=== PATIENT | male | born 1965 | race Caucasian/White ===

== ENCOUNTER 2016-12-12 16:10 | Inpatient (IN) | payer OTHER ==
[~2016-12-12] VITALS: Ht 185.4 cm; Wt 160.0 kg
[2016-12-12 16:11] VITALS: BP 153/82; PULSE 83; RESP 15; TEMP 97.9; O2SAT 95
[2016-12-12] MEDS ORDERED: SODIUM CHLOR 0.9% 1000 ML INJ 1,000 ML IV SCH (18:01)
--- NOTE | 2016-12-12 18:03 | PD ---
HPI Chief Complaint: Flank/Kidney Pain Time Seen by Provider: 17:56 Travel History International Travel<30 days: No Contact w/Intl Traveler<30days: No Traveled to known affect area: No History of Present Illness HPI This is a 51-year-old male who presents to the emergency department with 2 days of left flank pain, waking him up in the middle of the night 2 nights ago, constant, severe, worsening, associated with nausea and multiple episodes of vomiting. He denies any fevers or chills, denies any diarrhea, hematuria, urinary urgency or frequency. He's never had surgery on his abdomen. He denies alcohol use. He's never had pain like this before. PFSH Past Medical History Narrative Medical htn Social History Alcohol Use: Yes (socially) Tobacco Use: No Allergies-Medications (Allergen,Severity, Reaction): Coded Allergies: Sulfa (Verified Allergy, Severe, Rash, 12/12/16) Review of Systems Except as stated in HPI: all other systems reviewed are Neg Physical Exam Narrative GENERAL: Uncomfortable appearing, morbidly obese SKIN: Warm and dry. HEAD: Atraumatic. Normocephalic. EYES: Pupils equal and round. No injection or drainage. ENT: Moist mucous membranes NECK: Trachea midline. CARDIOVASCULAR: Regular rate and rhythm. No murmur appreciated. RESPIRATORY: Clear to auscultation. Breath sounds equal bilaterally. GASTROINTESTINAL: Abdomen soft, tender to palpation in the epigastrium with no rebound or guarding. : Left CVA tenderness. MUSCULOSKELETAL: No obvious deformities. NEUROLOGICAL: Awake and alert. No obvious cranial nerve deficits. Moving all extremities. PSYCHIATRIC: Appropriate mood and affect; insight and judgment normal. Data Data Last Documented VS Vital Signs Date Time Temp Pulse Resp B/P Pulse Ox O2 Delivery O2 Flow Rate FiO2 12/12/16 18:39 90 18 108/52 96 Nasal Cannula 2 12/12/16 16:11 97.9 Orders Complete Blood Count With Diff (12/12/16 18:01) Comprehensive Metabolic Panel (12/12/16 18:01) Lipase (12/12/16 18:01) Urinalysis - C+S If Indicated (12/12/16 18:01) Ct Abd/Pel W/O Iv Contrast (12/12/16 18:01) Iv Access Insert/Monitor (12/12/16 18:01) Ecg Monitoring (12/12/16 18:01) Oximetry (12/12/16 18:01) Ondansetron Inj (Zofran Inj) (12/12/16 18:15) Sodium Chlor 0.9% 1000 Ml Inj (Ns 1000 M (12/12/16 18:01) Sodium Chloride 0.9% Flush (Ns Flush) (12/12/16 18:15) Electrocardiogram (12/12/16 18:01) Hydromorphone Pf Inj (Dilaudid Pf Inj) (12/12/16 18:15) Troponin I (12/12/16 18:01) Hydromorphone Pf Inj (Dilaudid Pf Inj) (12/12/16 20:15) Ketorolac Inj (Toradol Inj) (12/12/16 20:15) Admit Order (Ed Use Only) (12/12/16 20:16) Ondansetron Inj (Zofran Inj) (12/12/16 20:30) Labs Laboratory Tests Test 12/12/16 18:26 White Blood Count 14.2 TH/MM3 Red Blood Count 4.60 MIL/MM3 Hemoglobin 13.7 GM/DL Hematocrit 40.9 % Mean Corpuscular Volume 88.9 FL Mean Corpuscular Hemoglobin 29.8 PG Mean Corpuscular Hemoglobin 33.5 % Concent Red Cell Distribution Width 13.7 % Platelet Count 171 TH/MM3 Mean Platelet Volume 8.2 FL Neutrophils (%) (Auto) 89.4 % Lymphocytes (%) (Auto) 5.7 % Monocytes (%) (Auto) 4.6 % Eosinophils (%) (Auto) 0.0 % Basophils (%) (Auto) 0.3 % Neutrophils # (Auto) 12.7 TH/MM3 Lymphocytes # (Auto) 0.8 TH/MM3 Monocytes # (Auto) 0.6 TH/MM3 Eosinophils # (Auto) 0.0 TH/MM3 Basophils # (Auto) 0.0 TH/MM3 CBC Comment DIFF FINAL Differential Comment Sodium Level 139 MEQ/L Potassium Level 4.3 MEQ/L Chloride Level 102 MEQ/L Carbon Dioxide Level 27.7 MEQ/L Anion Gap 9 MEQ/L Blood Urea Nitrogen 14 MG/DL Creatinine 1.47 MG/DL Estimat Glomerular Filtration 51 ML/MIN Rate Random Glucose 227 MG/DL Calcium Level 9.0 MG/DL Total Bilirubin 0.7 MG/DL Aspartate Amino Transf 20 U/L (AST/SGOT) Alanine Aminotransferase 38 U/L (ALT/SGPT) Alkaline Phosphatase 69 U/L Troponin I LESS THAN 0.02 NG/ML Total Protein 7.9 GM/DL Albumin 3.6 GM/DL Lipase 69 U/L MDM Medical Decision Making Medical Screen Exam Complete: Yes Emergency Medical Condition: Yes Interpretation(s) Afebrile, no tachycardia, hypertensive Leukocytosis with 89% neutrophils GFR is 51 Troponin is 0.02 Last 24 hours Impressions Abdomen/Pelvis CT 12/12/16 1801 Signed Impressions: Service Date/Time: December 18:50 - CONCLUSION: 1. 7 x 7 by 8mm stone of the left ureteropelvic junction causing moderate obstructive uropathy including perinephric edema. I can't clearly see the stone on the initial pressurizer radiograph. 2. Fatty liver. 3. Diverticulosis of the sigmoid colon without diverticulitis. Ted Crain MD Differential Diagnosis Nephrolithiasis, pyelonephritis, pancreatitis, gastritis Narrative Course This is a 51-year-old male who presents to the emergency department with left- sided flank pain that's been going on for 2 days. He was placed on a monitor and an IV was established. He was given multiple doses of analgesia and reassessed. Labs are obtained which demonstrated a leukocytosis. CT demonstrates an obstructing 7 x 8 mm stone at the UPJ. Given the size of the stone and its proximal location a think it's reasonable to admit the patient for pain control and urology consultation. He is nontoxic appearing and I don' t suspect an infected stone at this time. Physician Communication Physician Communication Discussed with Dr. Mcmahan Diagnosis Primary Impression: Acute unilateral obstructive uropathy Admitting Information Admitting Physician Requests: Admit Farhana Andino MD Dec 12, 2016 18:03
[2016-12-12] MEDS ORDERED: ONDANSETRON HCL 4 MG/2 ML VIAL IVP ONE (18:15)
[2016-12-12] MEDS ORDERED: HYDROmorphone HCL PF 1 MG/ML VIAL IVS ONE (18:15)
[2016-12-12] MEDS ORDERED: SODIUM CHLORIDE 0.9% FLUSH 5 ML FLUSH IVF PRN (18:15)
[2016-12-12 18:39] VITALS: BP 108/52; PULSE 90; RESP 18; O2SAT 96
[2016-12-12 18:51] LABS: AUTOMATED NEUTROPHIL # 12.7 TH/MM3 (1.8-7.7); BASOPHIL % 0.3 % (0.0-2.0); HEMATOCRIT 40.9 % (39.0-51.0); HEMO FLAGS DIFF FINAL; LYMPH % 5.7 % (9.0-44.0); LYMPHOCYTE # 0.8 TH/MM3 (1.0-4.8); MEAN CELL VOLUME 88.9 FL (80.0-100.0); MEAN CORPUSCULAR HEMOGLOBIN 29.8 PG (27.0-34.0); MEAN CORPUSCULAR HGB CONC 33.5 % (32.0-36.0); MONO % 4.6 % (0.0-8.0); NEUT % 89.4 % (16.0-70.0); PLATELET COUNT 171 TH/MM3 (150-450); RED CELL DISTRIBUTION WIDTH 13.7 % (11.6-17.2); WHITE BLOOD COUNT 14.2 TH/MM3 (4.0-11.0)
[2016-12-12 19:18] LABS: ANION GAP 9 MEQ/L (5-15); AST (GOT) 20 U/L (15-37); BICARBONATE 27.7 MEQ/L (21.0-32.0); BLOOD UREA NITROGEN 14 MG/DL (7-18); CHLORIDE 102 MEQ/L (98-107); GLOMERULAR FILTRATION RATE 51 ML/MIN (>89); POTASSIUM 4.3 MEQ/L (3.5-5.1); SODIUM (NA) 139 MEQ/L (136-145)
[2016-12-12 19:23] LABS: ALKALINE PHOSPHATASE 69 U/L (45-117); ALT (GPT) 38 U/L (12-78); TOTAL BILIRUBIN ADULT 0.7 MG/DL (0.2-1.0)
--- NOTE | 2016-12-12 19:30 | RADRPT ---
EXAM DATE/TIME: 12/12/2016 18:50 [facility] COMPARISON: No previous studies available for comparison. INDICATIONS : Left flank pain with nausea and vomiting for two days. ORAL CONTRAST: No oral contrast ingested. RADIATION DOSE: 21.99 CTDIvol (mGy) MEDICAL HISTORY : None SURGICAL HISTORY : None. ENCOUNTER: Initial ACUITY: 1 day PAIN SCALE: 8/10 LOCATION: Left flank TECHNIQUE: Volumetric scanning of the abdomen and pelvis was performed. Using automated exposure control and ad justment of the mA and/or kV according to patient size, radiation dose was kept as low as reasonably achievable to obtain optimal diagnostic quality images. FINDINGS: LOWER LUNGS: The visualized lower lungs are clear. LIVER: Fatty infiltrated liver. SPLEEN: Normal size without lesion. PANCREAS: Within normal limits. KIDNEYS: 10 x 7 by 8mm stone seen at the left ureteropelvic junction. There is moderate hydronephrosis. Perine phric edema seen. No renal or ureteral calculus on the right. ADRENAL GLANDS: Within normal limits. VASCULAR: There is no aortic aneurysm. BOWEL/MESENTERY: Moderate diverticulosis of the sigmoid colon. No acute inflammatory changes are demonstrated. ABDOMINAL WALL: Within normal limits. RETROPERITONEUM: There is no lymphadenopathy. BLADDER: No wall thickening or mass. REPRODUCTIVE: Within normal limits. INGUINAL: There is no lymphadenopathy or hernia. MUSCULOSKELETAL: No acute bony abnormality demonstrated. CONCLUSION: 1. 7 x 7 by 8mm stone of the left ureteropelvic junction causing moderate obstructive uropathy includ ing perinephric edema. I can't clearly see the stone on the initial crew boss radiograph. 2. Fatty liver. 3. Diverticulosis of the sigmoid colon without diverticulitis. Ted Crain MD on December 12, 2016 at 19:26 Board Certified Radiologist. This report was verified electronically.
[2016-12-12] MEDS ORDERED: HYDROmorphone HCL PF 1 MG/ML VIAL IV PUSH ONE (20:15)
[2016-12-12] MEDS ORDERED: KETOROLAC TROMETHAMINE 30 MG/ML (IVP) VIAL IV PUSH ONE (20:15)
[2016-12-12] MEDS ORDERED: ONDANSETRON HCL 4 MG/2 ML VIAL IV ONE (20:30)
[2016-12-12 20:45] VITALS: BP 141/84; PULSE 105; RESP 15; O2SAT 97
[2016-12-12 21:00] LABS: BLOOD, URINE TRACE (NEG); COMMENT (UR) CULT NOT INDICATED; CULTURE IF INDICATED CULT NOT INDICATED; GLUCOSE,URINE 1000 mg/dL (NEG); KETONE, URINE 10 mg/dL (NEG); MUCUS URINE FEW /lpf (OCC); NITRITE,URINE NEG (NEG); SQUAMOUS EPITHELIAL CELL URINE <1 /hpf (0-5); URINE COLOR YELLOW (YELLW/STRAW)
--- NOTE | 2016-12-12 22:09 | HHI.HP ---
HPI Service Family Medicine Primary Care Physician Non-Staff Admission Diagnosis obstructive uropathy, kidney stone Diagnoses: International Travel<30 Days: No Contact w/Intl Traveler<30days: No Known Affected Area: No History of Present Illness 51 year-old male with DM2, HTN, HLD, and gout presents to ED with L-flank pain x3 days. Three days ago, had sudden onset colicky L-sided flank pain that interfered with his sleep. The pain went away completely the next day so he dismissed it as a pulled muscle. However, severe pain returned this morning as sharp, constant, 8/10 L flank pain, radiating to L hip. not improved or worsened by positioning, coughing, or urinating. Pain was accompanied by non- bloody, bilious vomiting x10. Pain and nausea were relieved completely by medications in the ED. Currently 0/10 pain and able to tolerate sips of water. He has never had anything like this happen before and is travelling here from [place] on vacation. (Tracy Brennan MD R1) Review of Systems Constitutional: DENIES: Fever, Chills Endocrine: COMPLAINS OF: Polydipsia, Polyuria Eyes: DENIES: Blurred vision, Double Vision Ears, nose, mouth, throat: DENIES: Throat pain, Running Nose Respiratory: DENIES: Cough, Shortness of breath Cardiovascular: DENIES: Chest pain, Palpitations, Syncope Gastrointestinal: COMPLAINS OF: Nausea, Vomiting, DENIES: Abdominal pain, Constipation, Diarrhea Genitourinary: COMPLAINS OF: Nocturia (x1, chronic), DENIES: Hematuria, Dysuria Musculoskeletal: COMPLAINS OF: Back pain Integumentary: DENIES: Pruritus Neurologic: DENIES: Headache Psychiatric: COMPLAINS OF: Depression, DENIES: Anxiety (Tracy Brennan MD R1) Past Family Social History Past Medical History DM2 HTN HLD Gout "Arrhythmia- skipped beats every one in a while" Denies "afib" or anticogulation Depression Vitamin D deficiency . Past Surgical History Denies . Reported Medications *Does not have med list or know exact dosing Lantus 40mg BID Metformin 500 BID Diavan HCl Norvasc Statin Allopurinol once day Aspirin 81mg daily Lexapro Vitamin D 5000 units . (Tracy Brennan MD R1) Allergies: Coded Allergies: Sulfa (Verified Allergy, Severe, Rash, 12/12/16) Family History Mother- alive, chronic fatigue Father- alive, healthy 3 kids- healthy Social History Lives with and two of his three children. Lives in [place], visiting for spring. 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 Social alcohol use a few times/month. Full code (Tracy Brennan MD R1) Physical Exam Vital Signs Vital Signs Date Time Temp Pulse Resp B/P Pulse Ox O2 Delivery O2 Flow Rate FiO2 12/12/16 18:39 90 18 108/52 96 Nasal Cannula 2 12/12/16 18:39 89 12/12/16 16:11 97.9 83 15 153/82 95 Physical Exam GEN: Obese male in no acute distress. SKIN: Warm and dry, no rashes. Discolored scab LLQ abdomen ("from belt buckle" ) HEENT: PERRL. EOMI. No injection or scleral icterus. Pupils miotic. Oropharynx with mild diffuse erythema and grade 2 tonsillar hypertrophy. No exudate. NECK: Thick neck. Mild submandibular lymphadenopathy. No posterior or anterior chain LAD. No JVD. CV: Distant heart sounds. RRR. No murmurs or gallops. RESP: Lungs CTAB. No wheezes, rales, rhonchi. GI: Abd soft, NTND. No HSM. No guarding. : No CVA tenderness. No tenderness to palpation of vertebrae or para- vertebral musculature. MSK: No peripheral edema or calf tenderness NEURO: AAOx3. Motor and sensory function grossly within normal limits. PSYCH: Good insight. Appropriate affect. Laboratory Laboratory Tests Test 12/12/16 12/12/16 18:26 20:45 White Blood Count 14.2 Red Blood Count 4.60 Hemoglobin 13.7 Hematocrit 40.9 Mean Corpuscular Volume 88.9 Mean Corpuscular Hemoglobin 29.8 Mean Corpuscular Hemoglobin 33.5 Concent Red Cell Distribution Width 13.7 Platelet Count 171 Mean Platelet Volume 8.2 Neutrophils (%) (Auto) 89.4 Lymphocytes (%) (Auto) 5.7 Monocytes (%) (Auto) 4.6 Eosinophils (%) (Auto) 0.0 Basophils (%) (Auto) 0.3 Neutrophils # (Auto) 12.7 Lymphocytes # (Auto) 0.8 Monocytes # (Auto) 0.6 Eosinophils # (Auto) 0.0 Basophils # (Auto) 0.0 CBC Comment DIFF FINAL Differential Comment Sodium Level 139 Potassium Level 4.3 Chloride Level 102 Carbon Dioxide Level 27.7 Anion Gap 9 Blood Urea Nitrogen 14 Creatinine 1.47 Estimat Glomerular Filtration 51 Rate Random Glucose 227 Calcium Level 9.0 Total Bilirubin 0.7 Aspartate Amino Transf 20 (AST/SGOT) Alanine Aminotransferase 38 (ALT/SGPT) Alkaline Phosphatase 69 Troponin I LESS THAN 0.02 Total Protein 7.9 Albumin 3.6 Lipase 69 Urine Color YELLOW Urine Turbidity CLEAR Urine pH 5.0 Urine Specific [place] 1.018 Urine Protein NEG Urine Glucose (UA) 1000 Urine Ketones 10 Urine Occult Blood TRACE Urine Nitrite NEG Urine Bilirubin NEG Urine Urobilinogen LESS THAN 2.0 Urine Leukocyte Esterase NEG Urine RBC 1 Urine WBC LESS THAN 1 Urine Squamous Epithelial <1 Cells Urine Mucus FEW Microscopic Urinalysis Comment CULT NOT INDICATED (Tracy Brennan MD R1) Result Diagram: 12/12/16182512/12/161825 Imaging Last Impressions Abdomen/Pelvis CT 12/12/16 180 Signed Impressions: Service Date/Time: December 18:50 - CONCLUSION: 1. 7 x 7 by 8mm stone of the left ureteropelvic junction causing moderate obstructive uropathy including perinephric edema. I can't clearly see the stone on the initial chargeback specialist radiograph. 2. Fatty liver. 3. Diverticulosis of the sigmoid colon without diverticulitis. Ted Crain MD (Tracy Brennan MD R1) Assessment and Plan Assessment and Plan 51 year-old male with DM2, HTN, HLD, and gout admitted 12/12/16 for nephrolithiasis and SYLVIE. Code Status Full Discussed Condition With SDW: Dr. Ion Mcmahan (Tracy Brennan MD R1) Attending Attestation The patient has been seen and examined. The chart and all resident notes have been reviewed. I agree that inpatient care is appropriate and that a two midnight stay is expected for the reasons documented in the resident history and physical. I have discussed this with the resident and certify the resident s order for inpatient admission. (Airam Cain MD) Problem List: (1) Nephrolithiasis Status: Acute Plan: Nephrolithiasis was strongly suspected on admission secondary to classic presentation with severe flank pain and vomiting, however, pyelonephritis, AAA, mesenteric ischemia, and appendicitis were also considered. Labs returned remarkable for leukocytosis to 14.6k and elevated BUN/Cr of 14/1.47. CT abdomen/ pelvis confirmed diagnosis with partially obstructing 7 x 7 x 8mm stone at left UPJ. CT a/p was also significant for incidental fatty liver disease and diverticulosis. EKG was significant for PVCs and LAD. As stone >5mm in size, less likely to pass spontaneously. Pt to be admitted inpatient for IV fluids, pain control, and evaluation by nephrology for surgical candidacy. Antibiotics considered, not deemed necessary because of clean U/A and non-toxic appearance. Of note, pt at increased risk for uric acid stone due to gout, diabetes, and morbid obesity. Nephrolithiasis -Admit to inpatient under Dr. Cain -Consult Urology, appreciate recommendations for treatment of stone -Consult Case management for help with discharge arrangements (pt lives in [place]) -Strain urine for stones, notify physician if produced -Maintenance IVF at NS @200mL/hr -Start Flomax 0.4mg PO HS -Acetaminophen 1g IV q6h GINA -Morphine 4mg IV q2h PRN pain 5-10 -Dilaudid 0.5mg q3h PRN breakthrough pain -Miralax 17mg daily [facility] for bowel regimen support -Vitals q4h, oxygen support as needed for saturations 89%+, OOB ad randy -In AM, obtain CBC, BMP, Uric acid, PT/INR, PTT SYLVIE: Likely secondary to stone. Baseline Cr unknown. Fluids as below. Trend BUN /Cr. Diverticulosis: Incidental finding, encourage higher dietary fiber intake Fatty Liver Disease: Incidental finding on CT a/p: recommend dietary and exercise modification to achieve healthy weight. Chronic Medical Conditions DM2- hold home metformin 500 BID and lantus 40mg HS. Start Accu-check achs + low sliding scale insulin. Will continue home Lantus at lower dose 10mg HS HTN- continue amlodipine 10mg, valsartan 80mg PO, aspirin 81mg daily. PRN hydralazine for SBP 180+ HLD- continue home statin as pravastatin 40mg HS Depression- continue home Lexapro 20mg HS Gout- continue home allopurinol 100mg HS Morbid obesity 45-49- encourage dietary and exercise modification Fluids, Electrolytes, Nutrition, Prophylactic Fluids: MIVF @ NS 200mL/hr Electrolytes: monitor and replete, as needed Nutrition: NPO except meds after midnight in case of surgery, when allowed diet Diabetic diet DVT prophylaxis: SCDs GI prophylaxis: not indicated (2) SYLVIE (acute kidney injury) Status: Acute (3) Gout Status: Chronic (4) HTN (hypertension) Status: Chronic (5) HLD (hyperlipidemia) Status: Chronic (6) MDD (major depressive disorder) Status: Chronic (7) DM2 (diabetes mellitus, type 2) Status: Chronic (8) Fatty liver disease, nonalcoholic Status: Chronic (9) BMI 45.0-49.9, adult Status: Chronic (10) Diverticulosis Status: Chronic (Tracy Brennan MD R1) Physician Certification 2 Midnight Certification Type: Admission for Inpatient Services Order for Inpatient Services The services are ordered in accordance with Medicare regulations or non- Medicare payer requirements, as applicable. In the case of services not specified as inpatient-only, they are appropriately provided as inpatient services in accordance with the 2-midnight benchmark. Estimated LOS (days): 2 days is the estimated time the patient will need to remain in the hospital, assuming treatment plan goals are met and no additional complications. Post-Hospital Plan: Home (Tracy Brennan MD R1) Tracy Brennan MD R1 Dec 12, 2016 22:09 Airam Cain MD Dec 13, 2016 11:33
[2016-12-12] MEDS ORDERED: ACETAMINOPHEN 325 MG TAB PO PRN (23:00)
[2016-12-12] MEDS: SODIUM CHLORIDE 0.9% FLUSH 5 ML FLUSH FLUSH SCH (23:00)
[2016-12-12] MEDS ORDERED: SODIUM CHLORIDE 0.9% FLUSH 5 ML FLUSH FLUSH PRN (23:00)
[2016-12-12] MEDS ORDERED: MORPHINE SULFATE 4 MG/ML INJ IV PRN ×2 (23:00→23:30)
[2016-12-12] MEDS ORDERED: NALOXONE HCL 0.4 MG/ML AMP IV PRN ×2 (23:00→23:30)
[2016-12-12] MEDS ORDERED: METOCLOPRAMIDE HCL 10 MG/2 ML VIAL IV PUSH PRN (23:00)
[2016-12-12] MEDS ORDERED: GLUCAGON 1 MG/ML VIAL OTHER PRN (23:15)
[2016-12-12] MEDS: SODIUM CHLOR 0.9% 1000 ML INJ 1,000 ML IV SCH (23:15)
[2016-12-12] MEDS ORDERED: DEXTROSE 50% IN WATER 50 ML VIAL(D50) IV PUSH PRN (23:15)
[2016-12-12] MEDS ORDERED: hydrALAZINE HCL 20 MG/ML VIAL IV PRN (23:30)
[2016-12-12] MEDS: ACETAMINOPHEN 1000 MG/100 ML VIAL IV SCH (23:30)
[2016-12-12] MEDS ORDERED: diphenhydrAMINE HCL 25 MG CAP PO PRN (23:30)
[2016-12-12] MEDS ORDERED: MELATONIN 5 MG TAB PO PRN (23:30)
[2016-12-12] MEDS ORDERED: HYDROmorphone HCL PF 1 MG/ML VIAL IV PRN ×2 (23:30)
[2016-12-12 23:40] VITALS: O2SAT 94
[2016-12-13] VITALS (8 sets, daily range): BP systolic 123–149; BP diastolic 57–86; PULSE 70–88; RESP 16–20; TEMP 95.6–98.4; O2SAT 95–97
[2016-12-13] MEDS: INSULIN DETEMIR 100 UNITS/ML VIAL SQ SCH ×2 (01:45→21:21)
[2016-12-13] MEDS ORDERED: KETOROLAC TROMETHAMINE 30 MG/ML (IVP) VIAL IVP PRN (02:00)
[2016-12-13] MEDS: ESCITALOPRAM OXALATE 20 MG TAB PO SCH ×2 (03:17→21:22)
[2016-12-13] MEDS: TAMSULOSIN HCL 0.4 MG CAP PO SCH ×2 (03:17→21:22)
[2016-12-13] MEDS: SODIUM CHLOR 0.9% 1000 ML INJ 1,000 ML IV SCH ×5 (04:50→23:47)
[2016-12-13] MEDS: ACETAMINOPHEN 1000 MG/100 ML VIAL IV SCH ×3 (05:30→18:08)
[2016-12-13 06:17] LABS: AUTOMATED NEUTROPHIL # 8.3 TH/MM3 (1.8-7.7); BASOPHIL # 0.1 TH/MM3 (0-0.2); BASOPHIL % 0.8 % (0.0-2.0); EOSINOPHIL # 0.1 TH/MM3 (0-0.4); EOSINOPHIL % 0.7 % (0.0-4.0); HEMATOCRIT 36.4 % (39.0-51.0); HEMO FLAGS DIFF FINAL; MEAN CELL VOLUME 87.2 FL (80.0-100.0); MEAN CORPUSCULAR HEMOGLOBIN 30.2 PG (27.0-34.0); MEAN CORPUSCULAR HGB CONC 34.6 % (32.0-36.0); MONO % 11.1 % (0.0-8.0); NEUT % 70.4 % (16.0-70.0); PLATELET COUNT 152 TH/MM3 (150-450); RED BLOOD COUNT 4.17 MIL/MM3 (4.50-5.90); RED CELL DISTRIBUTION WIDTH 13.5 % (11.6-17.2); WHITE BLOOD COUNT 11.8 TH/MM3 (4.0-11.0)
[2016-12-13 06:32] LABS: APTT (PATIENT) 26.4 SEC (24.3-30.1); PROTHROMBIN TIME - PATIENT 11.2 SEC (9.8-11.6)
[2016-12-13] MEDS: INSULIN ASPART SUPPLEMENTAL SCALE SQ SCH ×4 (07:00→21:00)
--- NOTE | 2016-12-13 08:26 | HHI.FPPN ---
Subjective Subjective Patient seen and examined this am with the resident team. Case reviewed and discussed Please refer to resident H&P for further details regarding HPI, ROS, PMH, SurgHx FH and SocHx In summary, patient is a 51yoM with a history of insulin-dependent DM, HTN, obesity presenting with 3 days of L flank pain. No fevers, chills. He reports that the pain radiates to his L groin. No dysuria, hematuria. The pain became progressively worse over the course of the last several days since onset He was prompted to come in after 10 episodes of vomiting [facility] Objective Objective Last Impressions Abdomen/Pelvis CT 12/12/16 1801 Signed Impressions: Service Date/Time: December 18:50 - CONCLUSION: 1. 7 x 7 by 8mm stone of the left ureteropelvic junction causing moderate obstructive uropathy including perinephric edema. I can't clearly see the stone on the initial medical screener radiograph. 2. Fatty liver. 3. Diverticulosis of the sigmoid colon without diverticulitis. Ted Crain MD Laboratory Tests - Abnormals Test 12/12/16 12/12/16 12/13/16 18:26 20:45 06:00 White Blood Count 14.2 TH/MM3 11.8 TH/MM3 Neutrophils (%) (Auto) 89.4 % 70.4 % Lymphocytes (%) (Auto) 5.7 % Neutrophils # (Auto) 12.7 TH/MM3 8.3 TH/MM3 Lymphocytes # (Auto) 0.8 TH/MM3 Creatinine 1.47 MG/DL Estimat Glomerular Filtration 51 ML/MIN Rate Random Glucose 227 MG/DL Troponin I LESS THAN 0.02 NG/ML Lipase 69 U/L Urine Glucose (UA) 1000 mg/dL Urine Ketones 10 mg/dL Urine Occult Blood TRACE Urine Mucus FEW /lpf Red Blood Count 4.17 MIL/MM3 Hemoglobin 12.6 GM/DL Hematocrit 36.4 % Monocytes (%) (Auto) 11.1 % Monocytes # (Auto) 1.3 TH/MM3 Vital Signs 12/12/16 12/12/16 12/12/16 12/12/16 16:11 18:39 18:39 20:45 Temp 97.9 Pulse 83 89 90 105 Resp 15 18 15 B/P 153/82 108/52 141/84 Pulse Ox 95 96 97 O2 Delivery Nasal Cannula O2 Flow Rate 2 12/12/16 12/13/16 12/13/16 12/13/16 23:40 00:00 00:45 05:55 Pulse 88 70 Resp 16 18 18 B/P 136/69 123/57 Pulse Ox 94 97 96 O2 Delivery Nasal Cannula O2 Flow Rate 2.00 12/13/16 07:30 Temp 98.4 Pulse 77 Resp 16 B/P 149/77 Pulse Ox 95 O2 Delivery Room Air Physical exam GENERAL: wdwn male, obese, sitting up in chair in ED SKIN: Warm and dry. No rashes HEAD: Normocephalic. AT EYES: No scleral icterus. No injection or drainage. ENT: OP clear. MMM NECK: Supple, trachea midline. CARDIOVASCULAR: Distant heart sounds. Regular rate and rhythm without audible murmurs, gallops, or rubs. RESPIRATORY: Breath sounds equal and clear bilaterally. No accessory muscle use. GASTROINTESTINAL: Abdomen soft, non-tender, nondistended. Normal active BS, no rebound, guarding. MUSCULOSKELETAL: No cyanosis, or edema. No calf tenderness BACK: Nontender without obvious deformity. No CVA tenderness. NEURO: Awake and alert. Normal speech, CN grossly intact. Assessment Assessment 51yoM admitted with: Nephrolithiasis with obstructive uropathy Leukocytosis Acute renal injury DM, insulin dependent HTN Gout HL Obesity Depression PLAN PLAN IVF Pain control Urology consultation - appreciate recs Strain urine Monitor intake/output Monitor cbc, bmp SSI with accu-checks Resume home meds as appropriate Patient seen and examined with the resident team Case reviewed and discussed Agree with plan of care as discussed with me and documented in the resident note. Airam Cain MD Dec 13, 2016 08:26
[2016-12-13] MEDS ORDERED: VALSARTAN 80 MG TAB PO ONE (09:00)
[2016-12-13] MEDS: ALLOPURINOL 100 MG TAB PO SCH (09:00)
[2016-12-13] MEDS: MAGNESIUM HYDROXIDE SUSP 30 ML CUP PO SCH (09:00)
[2016-12-13] MEDS: SODIUM CHLORIDE 0.9% FLUSH 5 ML FLUSH FLUSH SCH ×2 (09:03→20:10)
[2016-12-13] MEDS: ASPIRIN EC 81 MG TABEC PO SCH (09:34)
[2016-12-13 11:20] LABS: ALT (GPT) 30 U/L (12-78); ANION GAP 8 MEQ/L (5-15); AST (GOT) 14 U/L (15-37); BICARBONATE 29.5 MEQ/L (21.0-32.0); BLOOD UREA NITROGEN 16 MG/DL (7-18); CHLORIDE 105 MEQ/L (98-107); GLOMERULAR FILTRATION RATE 64 ML/MIN (>89); SODIUM (NA) 142 MEQ/L (136-145)
[2016-12-13 11:22] LABS: ALKALINE PHOSPHATASE 53 U/L (45-117); TOTAL BILIRUBIN ADULT 0.8 MG/DL (0.2-1.0)
[2016-12-13] MEDS: ONDANSETRON HCL 4 MG/2 ML VIAL IVP PRN (11:53)
--- NOTE | 2016-12-13 14:10 | RADRPT ---
EXAM DATE/TIME: 12/13/2016 13:49 [facility] COMPARISON: CT ABDOMEN & PELVIS W/O CONTRAST, December 12, 2016, 18:50. INDICATIONS : Calculi MEDICAL HISTORY : None. SURGICAL HISTORY : None. ENCOUNTER: Initial ACUITY: 1 day PAIN SCORE: 7/10 LOCATION: Bilateral ABdomen FINDINGS: 8 mm stone can be seen in the left ureter at the level of L3, unchanged from yesterday CT. No other s tones are demonstrated. Nonobstructive bowel gas pattern. No free air. CONCLUSION: Unchanged position of left ureteral calculus near the level of L3. Ted Crain MD on December 13, 2016 at 14:08 Board Certified Radiologist. This report was verified electronically.
[2016-12-13] MEDS: KETOROLAC TROMETHAMINE 30 MG/ML (IVP) VIAL IV PUSH PRN (16:07)
--- NOTE | 2016-12-13 16:52 | MB ---
cc: JOSE R SAUL MD DATE OF CONSULTATION 12/13/16 REASON FOR CONSULTATION 1. Left proximal 8 mm ureteral stone with mild hydronephrosis 2. Left flank pain. HISTORY OF PRESENT ILLNESS This is a 51-year-old male with history of diabetes and gout who presented to [facility] emergency room last night with complaints of severe sharp stabbing left flank pain radiating to his left groin for the last three days. Initially, when it presented three days ago it came sudden onset and interfered with his sleep. However, the pain resolved completely the next day and he attributed it to a to pulled muscle. However, the pain abruptly returned and became more sharp, constant, 8/10 in his left flank radiating to his left groin starting yesterday morning. It did not improve with positioning, coughing or urinating. He then developed nausea and vomiting and vomited more than five times. He presented to the emergency department where a CT abdomen and pelvis without contrast was done which showed an 8 mm proximal left ureteral stone with mild hydronephrosis. He was then admitted for further evaluation. Urology was consulted. Currently, his pain is improved with morphine but it is slowly coming back on the left side. He also continues to be somewhat nauseated. He denies dysuria, hematuria or prior episodes in the past. Denies a history of kidney stones or family history of kidney stones. Denies any problems with urination, has a good stream, only gets up one time at night. PAST MEDICAL HISTORY 1. Diabetes, 2. Hypertension, 3. Gout, 4. Hyperlipidemia, 5. Questionable arrhythmia 6. Depression 7. Vitamin D deficiency PAST HISTORY Status post circumcision. MEDICATIONS 1. Lantus 40 mg b.i.d. 2. Metformin 500 mg b.i.d. 3. Diovan 4. Norvasc. 5. Allopurinol. 6. Aspirin. ALLERGIES SULFA SOCIAL HISTORY He lives with his and has three kids. He is currently visiting from [place]. He is flying back on Friday. He denies tobacco or illicit drug use. Does socially drink alcohol. REVIEW OF SYSTEMS See HPI otherwise 12-point review of systems was performed otherwise negative. PHYSICAL EXAMINATION VITAL SIGNS: Temperature is 94, pulse 80, respiratory rate 18, BP 145/86, satting 96% room air. GENERAL: Alert and oriented times three. No apparent distress. Pleasant, cooperative gentleman appears his stated age. HEENT: Head is normocephalic, atraumatic. Eyes - No scleral icterus. Extraocular muscles intact. NECK: Supple. Trachea is midline. No JVD. LUNGS: Clear to auscultation bilaterally. No wheezes, rales or rhonchi. HEART: Regular rate and rhythm, no gallops, rubs or murmurs. ABDOMEN: Soft, obese, nontender, nondistended. Positive bowel sounds. GENITOURINARY: No CVA tenderness bilaterally. His penis is circumcised. Testes are descended bilaterally. Normal size and consistency. RECTAL: EXTREMITIES: Nontender, no cyanosis, clubbing or edema. SKIN: No ulcers or rashes. PSYCHIATRIC: Normal affect. LABORATORY DATA White count 11.8, hemoglobin 12.6, hematocrit 36.1, platelet count 152. Sodium 142, potassium 4.0. Chloride 105, bicarb 28.5, creatinine 1.21, BUN 16, calcium 8.3. Urine had significant amount of glucose with negative nitrates and negative leukocyte esterase. IMAGING STUDIES CT abdomen and pelvis without contrast. Images reviewed. Agree with radiologist's report. He has an obstructing 8 mm left proximal ureteral stone with mild hydronephrosis. ASSESSMENT The patient is a 51-year-old male history of diabetes and gout who presents with left flank pain is found to have obstructing 8 mg left renal stone with nausea, vomiting and continued pain. PLAN 1. We will make the patient n.p.o. after midnight. We will schedule him for cystoscopy with left retrograde pyelogram, possible left ureteroscopy, left ureteral stent placement in the morning. Discussed risks, benefits and alternatives procedure with him including pain, bleeding, infection, need for additional procedures in the future to remove the stent among others. All questions were answered. He understood these risks, agreed to proceed. 2. We will obtain a KUB. 3. Continue antibiotics Flomax and pain control. Jose R Saul MD EMIsaura/ /1:44 PM /4:36 PM
[2016-12-13] MEDS ORDERED: CYAN50002 SL (18:05)
[2016-12-13] MEDS ORDERED: CHOL50006 PO (18:05)
[2016-12-13] MEDS ORDERED: LANTUS2P SQ (18:05)
[2016-12-13] MEDS ORDERED: ALLO300T2 PO (18:05)
[2016-12-13] MEDS ORDERED: ATOR20TA15 PO (18:05)
[2016-12-13] MEDS ORDERED: AMLO5 PO (18:05)
[2016-12-13] MEDS ORDERED: ASPI1TAB69 PO (18:05)
[2016-12-13] MEDS ORDERED: DIOV160T6 PO (18:05)
[2016-12-13] MEDS ORDERED: METF1000 PO (18:05)
[2016-12-13] MEDS ORDERED: ZANT150T2 PO (18:05)
--- NOTE | 2016-12-13 18:38 | EKG ---
Date Performed: 12/13/2016 Time Performed: 14:35:45 PTAGE: 51 years EKG: Sinus rhythm BORDERLINE LEFT AXIS DEVIATION MODERATE INTRAVENTRICULAR CONDUCTION DELAY BORDERLINE ECG WARNING: DA TA QUALITY MAY AFFECT INTERPRETATION PREVIOUS TRACING : 12/12/2016 18.01 Compared to prior tracing no significant change DOCTOR: Aaron Hernandez Interpretating Date/Time 12/13/2016 18:36:22
--- NOTE | 2016-12-13 19:44 | EKG ---
Date Performed: 12/12/2016 Time Performed: 18:01:58 PTAGE: 51 years EKG: Sinus rhythm WITH OCCASIONAL VENTRICULAR PREMATURE COMPLEXES MARKED LEFT AXIS DEVIATION MODERATE INTRAVENTRICULAR CONDUCTION DELAY ABNORMAL ECG NO PREVIOUS TRACING DOCTOR: Aaron Hernandez Interpretating Date/Time 12/13/2016 19:43:49
[2016-12-13] MEDS ORDERED: PRAVASTATIN SOD 40 MG TAB PO SCH (21:00)
[2016-12-14] VITALS: BP 131/80; PULSE 94; RESP 20; TEMP 98.3; O2SAT 96
[2016-12-14] MEDS: KETOROLAC TROMETHAMINE 30 MG/ML (IVP) VIAL IV PUSH PRN (01:40)
[2016-12-14] MEDS: ONDANSETRON HCL 4 MG/2 ML VIAL IVP PRN (01:41)
[2016-12-14 04:00] VITALS: BP 123/77; PULSE 84; RESP 20; TEMP 98; O2SAT 95
[2016-12-14 05:38] LABS: BASOPHIL % 0.2 % (0.0-2.0); EOSINOPHIL # 0.1 TH/MM3 (0-0.4); EOSINOPHIL % 0.7 % (0.0-4.0); HEMATOCRIT 34.6 % (39.0-51.0); HEMO FLAGS DIFF FINAL; LYMPH % 11.2 % (9.0-44.0); LYMPHOCYTE # 1.3 TH/MM3 (1.0-4.8); MEAN CELL VOLUME 87.5 FL (80.0-100.0); MEAN CORPUSCULAR HEMOGLOBIN 30.1 PG (27.0-34.0); MEAN CORPUSCULAR HGB CONC 34.4 % (32.0-36.0); MONO % 9.4 % (0.0-8.0); NEUT % 78.5 % (16.0-70.0); PLATELET COUNT 138 TH/MM3 (150-450); RED BLOOD COUNT 3.96 MIL/MM3 (4.50-5.90); RED CELL DISTRIBUTION WIDTH 13.8 % (11.6-17.2); WHITE BLOOD COUNT 11.5 TH/MM3 (4.0-11.0)
[2016-12-14 05:51] LABS: ALT (GPT) 25 U/L (12-78); ANION GAP 9 MEQ/L (5-15); AST (GOT) 13 U/L (15-37); BICARBONATE 26.8 MEQ/L (21.0-32.0); BLOOD UREA NITROGEN 15 MG/DL (7-18); CHLORIDE 105 MEQ/L (98-107); GLOMERULAR FILTRATION RATE 66 ML/MIN (>89); POTASSIUM 3.7 MEQ/L (3.5-5.1); SODIUM (NA) 141 MEQ/L (136-145)
[2016-12-14 05:54] LABS: ALKALINE PHOSPHATASE 52 U/L (45-117); TOTAL BILIRUBIN ADULT 0.8 MG/DL (0.2-1.0)
[2016-12-14] MEDS: INSULIN ASPART SUPPLEMENTAL SCALE SQ SCH ×2 (06:34→14:01)
[2016-12-14 08:00] VITALS: BP 123/77; PULSE 78; RESP 18; TEMP 96.3; O2SAT 94
--- NOTE | 2016-12-14 08:21 | HHI.FPPN ---
Subjective Remarks Patient is doing well this morning. He ate last night. He had some nausea and pain but these were relieved with medications. Denies dysuria, fever, chills. He is urinating without difficulty. No hematuria. He is looking forward to getting this procedure over with. No chest pain, vomiting, diarrhea, shortness of breath. (Nithin Mcmahan MD R2) Objective Vitals Vital Signs Date Time Temp Pulse Resp B/P Pulse Ox O2 Delivery O2 Flow Rate FiO2 12/14/16 04:00 98.0 84 20 123/77 95 12/14/16 00:00 98.3 94 20 131/80 96 12/13/16 20:00 98.3 75 20 125/69 96 12/13/16 20:00 98.3 75 12/13/16 16:30 95.6 81 18 141/73 95 12/13/16 11:57 80 18 145/86 96 Room Air 12/13/16 09:02 95 21 I/O 12/13/16 12/13/16 12/13/16 12/14/16 12/14/16 12/14/16 07:00 15:00 23:00 07:00 15:00 23:00 Intake Total 560 ml 482 ml Balance 560 ml 482 ml Intake Oral 560 ml 482 ml # Voids 2 3 (Nithin Mcmahan MD R2) Result Diagram: 12/14/16 0403 12/14/16 0403 Imaging Last Impressions Abdomen X-Ray 12/13/16 0000 Signed Impressions: Service Date/Time: Tuesday, December 13, 2016 13:49 - CONCLUSION: Unchanged position of left ureteral calculus near the level of L3. Ted Crain MD Abdomen/Pelvis CT 12/12/16 1801 Signed Impressions: Service Date/Time: December 18:50 - CONCLUSION: 1. 7 x 7 by 8mm stone of the left ureteropelvic junction causing moderate obstructive uropathy including perinephric edema. I can't clearly see the stone on the initial general production worker radiograph. 2. Fatty liver. 3. Diverticulosis of the sigmoid colon without diverticulitis. Ted Crain MD Objective Remarks O. CONSTITUTIONAL/GEN: Obese, in NAD. EYES: conjunctiva normal, PERRLA, EOMI. ENT: Mouth and pharynx normal. NECK: thyroid midline, carotids symmetrical. LUNGS: clear A-P, respiratory effort is normal. CARDIOVASCULAR: RR without murmur or gallop. No significant edema. GI/ABD: soft without masses, without organomegaly. : no CVA tenderness NEURO: No focal deficits. Gait is normal SKIN: color normal, no rashes noted. HEME/LYMPH: no bruising, petechia or significant adenopathy MUSC: back is normal in appearance. Extremities are normal in appearance. PSYCH/MENTAL STATUS: Alert and oriented x 3. (Nithin Mcmahan MD R2) A/P Assessment and Plan 51 year-old male with DM2, HTN, HLD, and gout admitted 12/12/16 for nephrolithiasis. Urology consulted Discharge Planning Pending urology and clinical course (Nithin Mcmahan MD R2) Attending Attestation Patient seen and examined. Case reviewed and discussed Agree with plan of care as discussed with me and documented in the resident note. (Airam Cain MD) Problem List: (1) Nephrolithiasis Status: Acute Plan: Urology consulted Nothing by mouth for procedure this morning Patient is scheduled for cystoscopy with left retrograde pyelogram and likely left ureteral stent placement. Pain control: Toradol 30 mg every 6 hours, morphine 4 mg every 2 hours IV when necessary for pain 6-10 Normal saline: 200 mL's per hour Zofran for nausea Flomax Urine strainer at bedside (2) FEN/PPX Status: Acute Plan: Fluids: Normal saline at 200 miles per hour Electrolytes: Monitor and replace when necessary Nutrition: Nothing by mouth for procedure this morning; diabetic diet after procedure Prophylaxis: Bilateral SCDs. Resume DVT prophylaxis after procedure. Chronic medical problems: DM2- hold home metformin 500 BID and lantus 40mg HS. Start Accu-check achs + low sliding scale insulin. Levemir 10 units at bedtime HTN- continue amlodipine 10mg, valsartan 80mg PO, aspirin 81mg daily. PRN hydralazine for SBP 180+ HLD- continue home statin as pravastatin 40mg HS Depression- continue home Lexapro 20mg HS Gout- continue home allopurinol 100mg HS Morbid obesity 45-49- encourage dietary and exercise modification (Nithin Mcmahan MD R2) Nithin Mcmahan MD R2 Dec 14, 2016 08:21 Airam Cain MD Dec 23, 2016 09:49
[2016-12-14] MEDS: ALLOPURINOL 100 MG TAB PO SCH (08:39)
[2016-12-14] MEDS: MAGNESIUM HYDROXIDE SUSP 30 ML CUP PO SCH (08:40)
[2016-12-14] MEDS: SODIUM CHLORIDE 0.9% FLUSH 5 ML FLUSH FLUSH SCH (08:41)
[2016-12-14] MEDS: ASPIRIN EC 81 MG TABEC PO SCH (08:41)
[2016-12-14] MEDS ORDERED: ceFAZolin INJ 1,000 MG VIAL IV ONE (09:48)
[2016-12-14] MEDS ORDERED: ACETAMINOPHEN 1000 MG/100 ML VIAL IV ONE (09:52)
--- NOTE | 2016-12-14 10:11 | PD.OP ---
Operative Report Date of Surgery: Dec 14, 2016 Preoperative Diagnosis: (1) Nephrolithiasis Postoperative Diagnosis: Procedure: cystoscopy, left ureteral stent insertion Surgeon: Jose R Kahn Neuroscience Director Na(s): n/a Operation and Findings: proximal stone seen on Xray stent placed successfully ok to d/c home F/U urologist in [place] Jose R Kahn MD Dec 14, 2016 10:11
[2016-12-14] MEDS ORDERED: fentaNYL CITRATE 250 MCG/5 ML AMP ONE (10:27)
[2016-12-14] MEDS ORDERED: DO NOT ADM ANY ANTICOAGULANT DRUGS XX PRN (11:15)
[2016-12-14 12:00] VITALS: BP 130/83; PULSE 68; RESP 18; TEMP 98; O2SAT 92
[2016-12-14] MEDS ORDERED: ONDANSETRON HCL 4 MG/2 ML VIAL IV PUSH ONE (12:07)
[2016-12-14] MEDS ORDERED: PERC5TAB12 PO (12:28)
--- NOTE | 2016-12-14 12:31 | HHI.DCPOC ---
Discharge Care Plan Diagnosis: (1) Nephrolithiasis Goals to Promote Your Health * To prevent worsening of your condition and complications * To maintain your health at the optimal level Directions to Meet Your Goals Take your medications as prescribed Follow your dietary instruction Follow activity as directed Return to the emergency room if having fevers/chills or severe pain Keep your appointments as scheduled Take your immunizations and boosters as scheduled If your symptoms worsen call your PCP, if no PCP go to Urgent Care Center or Emergency Room Smoking is Dangerous to Your Health. Avoid second hand smoke Call the 24-hour hour crisis hotline for domestic abuse at Nithin Mcmahan MD R2 Dec 14, 2016 12:31
--- NOTE | 2016-12-14 16:51 | HHI.DS ---
Discharge Summary Admission Date Dec 12, 2016 at 20:17 Discharge Date: Dec 14, 2016 Admitting Diagnosis obstructive uropathy, kidney stone (1) Nephrolithiasis Diagnosis: Principal Brief History 51 year-old male with DM2, HTN, HLD, and gout presents to ED with L-flank pain x3 days. Three days ago, had sudden onset colicky L-sided flank pain that interfered with his sleep. The pain went away completely the next day so he dismissed it as a pulled muscle. However, severe pain returned this morning as sharp, constant, 8/10 L flank pain, radiating to L hip. not improved or worsened by positioning, coughing, or urinating. Pain was accompanied by non- bloody, bilious vomiting x10. Pain and nausea were relieved completely by medications in the ED. Currently 0/10 pain and able to tolerate sips of water. He has never had anything like this happen before and is travelling here from [place] on vacation. CBC/BMP: 12/14/16 0403 12/14/16 0403 Significant Findings Laboratory Tests Test 12/12/16 12/12/16 12/13/16 12/13/16 18:26 20:45 06:00 10:27 White Blood Count 14.2 TH/MM3 11.8 TH/MM3 (4.0-11.0) (4.0-11.0) Neutrophils (%) (Auto) 89.4 % 70.4 % (16.0-70.0) (16.0-70.0) Lymphocytes (%) (Auto) 5.7 % (9.0-44.0) Neutrophils # (Auto) 12.7 TH/MM3 8.3 TH/MM3 (1.8-7.7) (1.8-7.7) Lymphocytes # (Auto) 0.8 TH/MM3 (1.0-4.8) Creatinine 1.47 MG/DL (0.60-1.30) Estimat Glomerular Filtration 51 ML/MIN (>89) 64 ML/MIN (>89) Rate Random Glucose 227 MG/DL 173 MG/DL (74-106) (74-106) Troponin I LESS THAN 0.02 NG/ML (0.02-0.05) Lipase 69 U/L (73-393) Urine Glucose (UA) 1000 mg/dL (NEG) Urine Ketones 10 mg/dL (NEG) Urine Occult Blood TRACE (NEG) Urine Mucus FEW /lpf (OCC) Red Blood Count 4.17 MIL/MM3 (4.50-5.90) Hemoglobin 12.6 GM/DL (13.0-17.0) Hematocrit 36.4 % (39.0-51.0) Monocytes (%) (Auto) 11.1 % (0.0-8.0) Monocytes # (Auto) 1.3 TH/MM3 (0-0.9) Calcium Level 8.3 MG/DL (8.5-10.1) Aspartate Amino Transf 14 U/L (15-37) (AST/SGOT) Albumin 3.2 GM/DL (3.4-5.0) Test 12/14/16 04:03 White Blood Count 11.5 TH/MM3 (4.0-11.0) Red Blood Count 3.96 MIL/MM3 (4.50-5.90) Hemoglobin 11.9 GM/DL (13.0-17.0) Hematocrit 34.6 % (39.0-51.0) Platelet Count 138 TH/MM3 (150-450) Neutrophils (%) (Auto) 78.5 % (16.0-70.0) Monocytes (%) (Auto) 9.4 % (0.0-8.0) Neutrophils # (Auto) 9.0 TH/MM3 (1.8-7.7) Monocytes # (Auto) 1.1 TH/MM3 (0-0.9) Estimat Glomerular Filtration 66 ML/MIN (>89) Rate Random Glucose 151 MG/DL (74-106) Calcium Level 8.1 MG/DL (8.5-10.1) Aspartate Amino Transf 13 U/L (15-37) (AST/SGOT) Albumin 3.0 GM/DL (3.4-5.0) PE at Discharge O. CONSTITUTIONAL/GEN: Obese, in NAD. EYES: conjunctiva normal, PERRLA, EOMI. ENT: Mouth and pharynx normal. NECK: thyroid midline, carotids symmetrical. LUNGS: clear A-P, respiratory effort is normal. CARDIOVASCULAR: RR without murmur or gallop. No significant edema. GI/ABD: soft without masses, without organomegaly. : no CVA tenderness NEURO: No focal deficits. Gait is normal SKIN: color normal, no rashes noted. HEME/LYMPH: no bruising, petechia or significant adenopathy MUSC: back is normal in appearance. Extremities are normal in appearance. PSYCH/MENTAL STATUS: Alert and oriented x 3. Hospital Course 51 year-old male with DM2, HTN, HLD, and gout admitted on 12/12/16 for nephrolithiasis and obstructive uropathy. Urology was consulted who performed cystoscopy and left ureteroscopy with left ureteral stent placement. After the procedure, he was okayed for discharge by urology to follow up with his urologist in [place]. Pt Condition on Discharge: Stable Discharge Disposition: Discharge Home Discharge Instructions DIET: Follow Instructions for: As Tolerated, No Restrictions Activities you can perform: Regular-No Restrictions Activities to Avoid: Lifting/Bending Follow up Referrals: Appointment for Follow Up - 2 Weeks with PCP Urology - 1 Week New Medications: Oxycodone-Acetaminophen (Percocet) 5-325 mg Tab 1 TAB PO Q6H PRN PAIN #20 Ref 0 TAB Continued Medications: Allopurinol (Allopurinol) 300 Mg Tab 300 MG PO DAILY Gout #1 Ref 0 TAB Amlodipine (Norvasc) 5 Mg Tab 5 MG PO HS Blood Pressure Management #1 Ref 0 TAB Aspirin (Aspirin) 81 Mg Tabdr 81 MG PO HS Blood Clot Prevention TAB Atorvastatin (Atorvastatin) 20 Mg Tab 20 MG PO HS Cholesterol Management #1 Ref 0 TAB Cholecalciferol (Vitamin D) 5,000 Unit Tab PO HS Nutritional Supplement Cyanocobalamin (Vitamin B-12) 5,000 Mcg Subl 5000 MCG SL AC BREAKFAST Nutritional Supplement Ref 0 TAB.SL Insulin Glargine Inj (Lantus Inj) 100 Unit/Ml Inj 40 UNITS SQ BID Blood Sugar Management Metformin (Metformin) 1,000 Mg Tab 1000 MG PO BID With meals Blood Sugar Management #1 Ref 0 TAB Ranitidine (Zantac) 150 Mg Tab 150 MG PO DIRECTED PRN REFLUX #1 Ref 0 TAB Valsartan (Diovan) 160 Mg Tab 160 MG PO HS Blood Pressure Management #1 Ref 0 TAB Chetna Martin MD R1 Dec 14, 2016 16:51
--- NOTE | 2016-12-18 10:02 | MP ---
cc: JOSE R SAUL MD DATE OF SURGERY 12/14/2016 PREOPERATIVE DIAGNOSIS 1. Left ureteral stone with mild hydronephrosis 2. Left flank pain 3. Gout POSTOPERATIVE DIAGNOSIS 1. Left ureteral stone with mild hydronephrosis 2. Left flank pain 3. Gout PROCEDURE 1. Cystourethroscopy 2. Insertion of left ureteral stents SURGEON Jose R Saul MD ANESTHESIA General COMPLICATIONS None PREOPERATIVE ANTIBIOTICS Ancef 2 grams IV DRAINS A 6 x 28 double-J left ureteral stent BLOOD LOSS Less than 5 mL DISPOSITION Stable to recovery INDICATIONS The patient is a 51-year-old male with a history of diabetes and gout who is visiting [place] on vacation from [place] presented to the [facility] with nausea, vomiting and severe left flank pain for three days. The patient has CT of the abdomen and pelvis without contrast done which showed an 8 mm proximal left ureteral stone. Due to his persistent pain and nausea despite IV pain medications, he was then set up for cystoscopy, posterior ureteroscopy and stent placement. After the risks, benefits and alternatives were explained, the patient wished to proceed and informed consent was obtained. DETAILS OF THE PROCEDURE The patient was properly identified, brought back to the cystoscopy suite where he was laid supine on the cystoscopy table. A proper time-out was performed under the direction of anesthesiology. The patient and induced under general aesthetic. Antibiotics in the form of Ancef 2 grams IV were given before the start of the procedure. The patient was then placed in the dorsolithotomy position, prepped and draped in a normal sterile surgical fashion. Using a 22-Faroese sheath with a 30 degree lens, I then entered his bladder per urethra without any difficulty. He did have a trilobar hypertrophy of his prostate with a large median lobe, however once inside his bladder, I did a senior cystoscopy which showed no evidence of bladder tumors, stones or diverticula. The bladder was moderately trabeculated. Both orifices were identified and appeared in anatomic location. I attempted to pass a 5-Faroese ureteral catheter, but it buckled at the left ureteral orifice. I then used a 0.035 guidewire through the ureteral catheter to try to cannulate the left ureteral orifice, again, this buckled as well, as it was a difficult angle to get into the left ureteral orifice due to his enlarged prostate. After several other attempts, I decided to try to do it with a semi-rigid ureteroscope, therefore I removed the rigid cystoscope, I then passed a semi-rigid ureteroscope into the patient's bladder without difficulty and then easily from the left orifice I could see the lumen of the left ureter quite easily. Under direct visualization, I then was able to pass a sensor wire up into the left kidney. Fluoroscopy confirmed the wire up the left kidney. I was able to visualize the stone in the proximal ureter as well. The ureteroscope was then removed. I then back-loaded the wire through the rigid cystoscope. A 6 x 28 double-J stent was then carefully passed over the wire up into left kidney under the guidance of fluoroscopy. The proximal curl was seen in the upper pole. The wire was removed and there was a good curl seen on the bladder. The bladder was then drained. This concluded the procedure. The patient was extubated and sent to condition in stable condition to be transferred back to the floor. From the neurology standpoint, it is okay for him to be discharged home later today. He will then follow up with a urologist when he gets back home to [place] earlier this week. MD SCARLETT Carlson/MILANA /10:20 PM /8:53 AM
== END 2016-12-14 13:45 | disposition home or self-care (01) | DRG 694 ==
LOC: NEPA 16:10 → NEDA 20:17 → NEDH 12-13 00:17 → N06A 12-13 16:46
PROVIDERS: ADMIT Family Medicine; ATTEND Family Medicine
PROC: 0T778DZ Dilation of Left Ureter with Intraluminal Device, Via Natural or Artificial Opening Endoscopic (ICD-10-PCS; principal; 2016-12-14 09:23)
DX: N13.2 Hydronephrosis with renal and ureteral calculous obstruction (principal); N17.9 Acute kidney failure, unspecified; K76.0 Fatty (change of) liver, not elsewhere classified; E55.9 Vitamin D deficiency, unspecified; E66.01 Morbid (severe) obesity due to excess calories; I10 Essential (primary) hypertension; D72.829 Elevated white blood cell count, unspecified; E11.9 Type 2 diabetes mellitus without complications; F32.9 Major depressive disorder, single episode, unspecified; E78.5 Hyperlipidemia, unspecified; M10.9 Gout, unspecified; K57.90 Diverticulosis of intestine, part unspecified, without perforation or abscess without bleeding; Z79.4 Long term (current) use of insulin
CPT/HCPCS: 74000; 74176; 80053; 81001; 82948; 83690; 84484; 84550; 85025; 85610; 85730; 93005; 96374; 96375; 96376; C1769; C2617; J0131; J0690; J1170; J1815; J1885; J2270; J2405; J3010; J7030